=== PATIENT | female | born 2005 | race African-American/Black ===

== ENCOUNTER 2024-07-04 15:58 | Emergency (ER) | payer OTHER ==
[~2024-07-04] VITALS: Ht 160 cm; Wt 59.0 kg
[2024-07-04 16:00] VITALS: TEMP 98.3; O2SAT 99
[2024-07-04 17:58] LABS: BASOPHILS % 0.4 % (0.0-2.0); EOSINOPHILS % 2.7 % (0.0-5.0); HEMATOCRIT. 35.9 % (36.0-48.0); HEMOGLOBIN. 11.4 g/dL (12.0-16.0); LYMPHOCYTES % 29.8 % (20.0-50.0); MEAN CORPUSCULAR HEMOGLOBIN 26.1 pg (28.0-32.0); MEAN CORPUSCULAR HGB CONC 31.7 g/dL (31.0-37.0); MEAN CORPUSCULAR VOLUME 82.5 fL (81.0-99.0); MEAN PLATELET VOLUME 8.4 fl (7.4-10.4); MONOCYTES % 10.3 % (2.0-8.0); NEUTROPHILS % 56.8 % (40.0-76.0); PLATELET 366 x1000/uL (130-400); RED BLOOD CELL COUNT 4.35 mill/uL (4.2-5.4); RED CELL DISTRIBUTION WIDTH 15.6 % (11.6-14.6); WHITE BLOOD COUNT 5.3 x1000/uL (4.5-11.0)
[2024-07-04 18:01] LABS: CLARITY URINE CLEAR (CLEAR); COLOR URINE YELLOW (YELLOW); GLUCOSE URINE NEGATIVE (NEGATIVE); KETONES URINE NEGATIVE (NEGATIVE); LEUKOCYTE ESTERASE URINE NEGATIVE (NEGATIVE); NITRITE URINE NEGATIVE (NEGATIVE); OCCULT BLOOD URINE 2+ (NEGATIVE); PH URINE 5.5 (4.5-8.0); PROTEIN URINE NEGATIVE (NEGATIVE); SPECIFIC GRAVITY URINE 1.025 (1.005-1.030); UROBILINOGEN URINE 0.2 E.U./dL (0.2-1.0)
[2024-07-04 18:02] LABS: CHLORIDE 105 mEq/L (98-107); POTASSIUM 3.9 mEq/L (3.5-5.1); SODIUM 137 mEq/L (136-145)
[2024-07-04 18:03] LABS: CALCIUM 9.7 mg/dL (8.7-10.4); CARBON DIOXIDE 28 mEq/L (21-32)
[2024-07-04 18:08] LABS: CREATININE 0.6 mg/dL (0.6-1.0); GLUCOSE 100 mg/dL (70-105); UREA NITROGEN BLOOD 11 mg/dL (9-23)
[2024-07-04 18:14] LABS: BACTERIA URINE 1+; SQUAMOUS EPITHELIAL CELL URINE 1+ /lpf (RARE/1+); WBC URINE 0-2 /hpf (0-2)
[2024-07-04 18:17] LABS: B-HCG QUANTITATIVE 1 mIU/mL (<3)
[2024-07-04 19:15] VITALS: BP 136/98; PULSE 78; RESP 16
[2024-07-04] MEDS: IBUPROFEN 600MG TABLET PO ONE (19:15)
== END 2024-07-04 20:21 | disposition home or self-care (01) ==
LOC: ER 15:58
DX: N83.291 Other ovarian cyst, right side (principal); N93.9 Abnormal uterine and vaginal bleeding, unspecified
CPT/HCPCS: 36415; 76830; 76856; 80048; 81003; 81025; 84702; 85025; 86850; 86900; 99284

== ENCOUNTER 2024-12-06 11:44 | Emergency (ER) | payer OTHER ==
[~2024-12-06] VITALS: Ht 160 cm; Wt 59.0 kg
[2024-12-06 12:09] VITALS: O2SAT 99
[2024-12-06 12:19] VITALS: BP 116/76; PULSE 79; RESP 18; TEMP 98.3; O2SAT 100
[2024-12-06 13:05] LABS: CLARITY URINE CLOUDY (CLEAR); COLOR URINE YELLOW (YELLOW); GLUCOSE URINE NEGATIVE (NEGATIVE); KETONES URINE NEGATIVE (NEGATIVE); LEUKOCYTE ESTERASE URINE TRACE (NEGATIVE); NITRITE URINE NEGATIVE (NEGATIVE); OCCULT BLOOD URINE NEGATIVE (NEGATIVE); PROTEIN URINE NEGATIVE (NEGATIVE); SPECIFIC GRAVITY URINE 1.012 (1.005-1.030); UROBILINOGEN URINE 0.2 E.U./dL (0.2-1.0)
[2024-12-06 14:15] LABS: SQUAMOUS EPITHELIAL CELL URINE 3+ /lpf (RARE/1+)
[2024-12-06 14:16] LABS: BACTERIA URINE 1+
[2024-12-06 14:17] LABS: MUCUS URINE TRACE /lpf (< = 2+); RBC URINE 0-2 /hpf (0-2); WBC URINE 0-2 /hpf (0-2)
[2024-12-10 04:07] LABS: CHLAMYDIA TRACHOMATIS NAA Negative (Negative); NEISSERIA GONORRHOEAE NAA Negative (Negative)
== END 2024-12-06 18:02 | disposition left against medical advice (07) ==
LOC: ER 13:50
DX: N94.89 Other specified conditions associated with female genital organs and menstrual cycle (principal); Z53.21 Procedure and treatment not carried out due to patient leaving prior to being seen by health care provider
CPT/HCPCS: 81003; 87491; 87591